=== PATIENT | male | born 1980 | race Caucasian/White ===

== ENCOUNTER 2023-07-05 15:37 | Outpatient (REF) | payer MEDICAID, SELFPAY ==
[2023-07-05 19:47] LABS: Calculated LDL 86 mg/dL (<100); Cholesterol 132 mg/dL (<200); Ferritin 129 ng/mL (26-388); HDL Cholesterol 40 mg/dL (40-60); Triglyceride 33 mg/dL (<150); Vitamin B12 805 pg/mL (193-986)
[2023-07-05 20:04] LABS: Iron 79 ug/dL (65-175); Total Iron Binding Capacity 395 ug/dL (250-450); Transferrin Sat 20 % (20-55)
== END 2023-07-05 15:38 | disposition home or self-care (01) ==
LOC: NCHCN 15:37
PROVIDERS: PCP Physician Assistant; Visit Provider Physician Assistant
DX: R10.9 Unspecified abdominal pain (principal); D64.9 Anemia, unspecified; K92.1 Melena; Z13.220 Encounter for screening for lipoid disorders; Z86.69 Personal history of other diseases of the nervous system and sense organs
CPT/HCPCS: 80061; 82607; 82728; 83540; 83550

== ENCOUNTER 2024-11-19 16:56 | Outpatient (REF) | payer MEDICAID, SELFPAY ==
[2024-11-19 19:20] LABS: Bilirubin Negative (Negative); Blood Moderate (Negative); Clarity Cloudy (Clear); Glucose Negative (Negative); Ketones Negative (Negative); Leukocyte Esterase Moderate (Negative); Nitrite Positive (Negative); Urobilinogen 0.2 mg/dL (Up to 0.2)
[2024-11-19 19:27] LABS: Bacteria Moderate HPF (Negative); C & S Indicated? C&S Done As Ordered; Crystals Negative HPF (Negative); Epithelial Cells Negative HPF (Negative); Mucus Negative (Negative); WBC 20-50 HPF (0-5)
== END 2024-11-19 16:57 | disposition home or self-care (01) ==
LOC: NCHCN 16:56
PROVIDERS: PCP Physician Assistant; Visit Provider Internal Medicine
DX: R30.0 Dysuria (principal); B96.29 Other Escherichia coli [E. coli] as the cause of diseases classified elsewhere; R82.89 Other abnormal findings on cytological and histological examination of urine
CPT/HCPCS: 87077; 81003; 81015; 87086; 87186

== ENCOUNTER 2025-04-07 17:21 | Outpatient (REF) | payer MEDICAID, SELFPAY | END 2025-04-07 17:22 | disposition home or self-care (01) | LOC: NCHCN 17:21 | PROVIDERS: PCP Physician Assistant; Visit Provider Physician Assistant | DX: R30.0 Dysuria (principal); R82.89 Other abnormal findings on cytological and histological examination of urine | CPT/HCPCS: 87077; 87086; 87186 ==

== ENCOUNTER 2025-04-16 15:18 | Outpatient (REF) | payer MEDICAID, SELFPAY ==
[2025-04-16 19:37] LABS: RBC 0-2 HPF (0-2); WBC 0-2 HPF (0-5)
== END 2025-04-16 15:19 | disposition home or self-care (01) ==
LOC: NCHCN 15:18
PROVIDERS: PCP Physician Assistant; Visit Provider Physician Assistant
DX: R31.9 Hematuria, unspecified (principal)
CPT/HCPCS: 81015; 87086

== ENCOUNTER 2025-04-30 19:46 | Outpatient (REF) | payer MEDICAID, SELFPAY ==
[2025-04-30 19:24] LABS: Abs Immature Grans 0.01 10^3/uL (0.0-0.06); HCT 43.3 % (40.0-50.0); HGB 13.9 g/dL (13.5-17.5); Immature Grans % 0.2 %; MCH 27.1 pg (27.0-33.0); MCHC 32.1 % (32.0-36.0); MCV 85 fL (80-95); MPV 10.1 fL (8.0-11.0); Platelet Count 317 10^3/uL (130-400); RBC 5.12 10^6/uL (4.36-5.78); RDW 13.5 % (11.8-14.1); RDW-SD 42.1 fL; WBC 6.24 10^3/uL (4.4-10.8)
[2025-04-30 19:35] LABS: ALT 31 U/L (16-63); AST 24 U/L (15-37); Albumin 3.9 g/dL (3.4-5.0); Alkaline Phosphatase 134 U/L (46-116); Anion Gap 6.1 mmol/L (3-11); BUN 16 mg/dL (7-18); Bilirubin, Total 0.3 mg/dL (0.2-1.0); CO2 30.9 mmol/L (21.0-32.0); Calcium 9.1 mg/dL (8.5-10.1); Chloride 100 mmol/L (98-107); Estimated GFR 77.43 (mL/min/1.73m2); Glucose 102 mg/dL (74-106); Potassium 4.4 mmol/L (3.5-5.1); Sodium 137 mmol/L (136-145); Total Protein 7.8 g/dL (6.4-8.2)
== END 2025-04-30 19:47 | disposition home or self-care (01) ==
LOC: NCHCN 19:46
PROVIDERS: PCP Physician Assistant; Visit Provider Physician Assistant
DX: R10.30 Lower abdominal pain, unspecified (principal)
CPT/HCPCS: 80053; 85025

== ENCOUNTER 2025-06-15 15:01 | Outpatient (REF) | payer MEDICAID, SELFPAY | END 2025-06-15 15:02 | disposition home or self-care (01) | LOC: NCHCN 15:01 | PROVIDERS: PCP Physician Assistant; Visit Provider Physician Assistant | DX: R30.0 Dysuria (principal); R31.29 Other microscopic hematuria | CPT/HCPCS: 81015; 87086 ==

== ENCOUNTER 2025-07-01 11:48 | Outpatient (REF) | payer MEDICAID, SELFPAY ==
[2025-07-01 20:48] LABS: C & S Indicated? No; RBC 0-2 HPF (0-2)
== END 2025-07-01 11:49 | disposition home or self-care (01) ==
LOC: NCHCN 11:48
PROVIDERS: PCP Physician Assistant; Visit Provider Physician Assistant
DX: R30.0 Dysuria (principal)
CPT/HCPCS: 81015; 87086

== ENCOUNTER 2025-08-09 09:56 | Outpatient (CLI) | payer MEDICAID, SELFPAY ==
[2025-08-09 17:30] LABS: PSA, Screening 1.6 ng/mL (<=2.5)
== END 2025-08-09 09:57 | disposition home or self-care (01) ==
LOC: LBO 09:56
PROVIDERS: PCP Physician Assistant; Visit Provider Nurse Practitioner Gerontology
DX: R39.9 Unspecified symptoms and signs involving the genitourinary system (principal)
CPT/HCPCS: 36415; 84153

== ENCOUNTER 2025-09-17 19:09 | Outpatient (REF) | payer MEDICAID, SELFPAY ==
[2025-09-17 19:42] LABS: RBC 20-50 HPF (0-2); WBC >50 HPF (0-5)
== END 2025-09-17 19:10 | disposition home or self-care (01) ==
LOC: NCHCN 19:09
PROVIDERS: PCP Physician Assistant; Visit Provider Nurse Practitioner
DX: R82.90 Unspecified abnormal findings in urine (principal)
CPT/HCPCS: 81015; 87086